=== PATIENT | male | born 1960 | race Caucasian/White ===

== ENCOUNTER 2017-12-31 11:39 | Emergency (ER) | payer OTHER ==
[~2017-12-31 11:39] MED LIST: ADVI200C9 PO; LORT5TAB PO
[2017-12-31 12:05] VITALS: BP 167/88; PULSE 84; RESP 16; TEMP 98.4; O2SAT 96
--- NOTE | 2017-12-31 12:55 | PD ---
HPI Chief Complaint: Diabetic Time Seen by Provider: 12:53 Travel History International Travel<30 days: No Contact w/Intl Traveler<30days: No Traveled to known affect area: No History of Present Illness HPI Patient states that he is on metformin, however he has not been taking as prescribed and has been quite noncompliant. Today he attempted to go to [place] outpatient for his once a year physical, when he was told to come to the ER because his blood sugar was over 500. Patient denies any associated fever, rash , nausea, vomiting, diarrhea, chest pain, headache, back pain, flank pain or abdominal pain. Patient denies any alleviating or aggravating factors presently. And states that he has not been compliant at all with his Metformin. Primary care is [place] No known drug allergy Past medical history significant for diabetes, substance use, sleep apnea, PFSH Past Medical History Blood Disorders: No Cancer: No Cardiovascular Problems: No Endocrine: No Genitourinary: No Immune Disorder: No Musculoskeletal: Yes Neurologic: No Psychiatric: No Reproductive: No Respiratory: Yes Sleep Apnea: Yes Social History Alcohol Use: No Tobacco Use: No Substance Use: Yes Allergies-Medications (Allergen,Severity, Reaction): Coded Allergies: No Known Allergies (Verified Allergy, Mild, 12/31/17) Reported Meds & Prescriptions Reported Meds & Active Scripts Active Reported Metformin (Metformin HCl) 1,000 Mg Tab 1,000 Mg PO DAILY With a meal Review of Systems General / Constitutional: No: Fever Eyes: No: Visual changes HENT: No: Headaches Cardiovascular: No: Chest Pain or Discomfort Respiratory: No: Shortness of Breath Gastrointestinal: No: Abdominal Pain Genitourinary: No: Dysuria Musculoskeletal: No: Pain Skin: No Rash Neurologic: No: Weakness Psychiatric: No: Depression Endocrine: Positive: Polyuria, Polydipsia Hematologic/Lymphatic: No: Easy Bruising Physical Exam Narrative GENERAL: SKIN: Warm and dry. HEAD: Atraumatic. Normocephalic. EYES: Pupils equal and round. No scleral icterus. No injection or drainage. ENT: No nasal bleeding or discharge. Mucous membranes pink and moist. NECK: Trachea midline. No JVD. CARDIOVASCULAR: Regular rate and rhythm. RESPIRATORY: No accessory muscle use. Clear to auscultation. Breath sounds equal bilaterally. GASTROINTESTINAL: Abdomen soft, non-tender, nondistended. Hepatic and splenic margins not palpable. MUSCULOSKELETAL: Extremities without clubbing, cyanosis, or edema. No obvious deformities. NEUROLOGICAL: Awake and alert. No obvious cranial nerve deficits. Motor grossly within normal limits. Five out of 5 muscle strength in the arms and legs. Normal speech. PSYCHIATRIC: Appropriate mood and affect; insight and judgment normal. Data Data Last Documented VS Vital Signs Date Time Temp Pulse Resp B/P (MAP) Pulse Ox O2 Delivery O2 Flow Rate FiO2 12/31/17 13:31 80 16 134/80 (98) 94 Room Air 12/31/17 12:05 98.4 Orders Orders Complete Blood Count With Diff (12/31/17 12:06) Basic Metabolic Panel (Bmp) (12/31/17 12:06) Electrocardiogram (12/31/17 13:03) Ckmb (Isoenzyme) Profile (12/31/17 13:03) Troponin I (12/31/17 13:03) Blood Gas Venous Ph (12/31/17 13:03) Iv Access Insert/Monitor (12/31/17 13:03) Ecg Monitoring (12/31/17 13:03) Oximetry (12/31/17 13:03) Urinalysis - C+S If Indicated (12/31/17 13:03) Chest, Single Ap (12/31/17 13:03) Sodium Chlor 0.9% 1000 Ml Inj (Ns 1000 M (12/31/17 13:04) Sodium Chlor 0.9% 1000 Ml Inj (Ns 1000 M (12/31/17 13:34) Insulin Human Regular Inj (Novolin R Inj (12/31/17 13:15) Insulin Human Regular Inj (Novolin R Inj (12/31/17 13:15) CKMB (12/31/17 13:25) CKMB% (12/31/17 13:25) Blood Glucose (12/31/17 14:45) Labs Laboratory Tests Test 12/31/17 12:20 12/31/17 12:25 12/31/17 13:18 12/31/17 13:25 White Blood Count 6.7 TH/MM3 Red Blood Count 5.05 MIL/MM3 Hemoglobin 14.4 GM/DL Hematocrit 41.7 % Mean Corpuscular Volume 82.6 FL Mean Corpuscular Hemoglobin 28.5 PG Mean Corpuscular Hemoglobin Concent 34.5 % Red Cell Distribution Width 12.9 % Platelet Count 209 TH/MM3 Mean Platelet Volume 8.8 FL Neutrophils (%) (Auto) 61.9 % Lymphocytes (%) (Auto) 26.8 % Monocytes (%) (Auto) 7.0 % Eosinophils (%) (Auto) 3.6 % Basophils (%) (Auto) 0.7 % Neutrophils # (Auto) 4.1 TH/MM3 Lymphocytes # (Auto) 1.8 TH/MM3 Monocytes # (Auto) 0.5 TH/MM3 Eosinophils # (Auto) 0.2 TH/MM3 Basophils # (Auto) 0.0 TH/MM3 CBC Comment DIFF FINAL Differential Comment Blood Urea Nitrogen 14 MG/DL Creatinine 1.04 MG/DL Random Glucose 482 MG/DL Calcium Level 9.4 MG/DL Sodium Level 132 MEQ/L Potassium Level 4.2 MEQ/L Chloride Level 96 MEQ/L Carbon Dioxide Level 25.9 MEQ/L Anion Gap 10 MEQ/L Estimat Glomerular Filtration Rate 74 ML/MIN Venous Blood pH 7.42 Total Creatine Kinase 159 U/L Creatine Kinase MB 3.2 NG/ML Troponin I LESS THAN 0.02 NG/ML MDM Medical Decision Making Medical Screen Exam Complete: Yes Emergency Medical Condition: Yes Medical Record Reviewed: Yes Interpretation(s) EKG shows a normal sinus rhythm, 70 bpm, normal intervals, no evidence of any STEMI pattern. Differential Diagnosis DKA versus hyperglycemia due to noncompliance versus electrolyte imbalance versus pancreatitis versus STEMI Narrative Course High glucose on complete metabolic profile by laboratory 482 reported VBG pH of 7.42 which is normal and does not show any evidence of DKA CBC shows no leukocytosis, no anemia, normal platelet count, no left shift. Patient's electrolytes were all within normal limits with the exception of random glucose of 482 as previously reported First set of cardiac enzymes negative Diagnosis Primary Impression: Hyperglycemia secondary to noncompliance Patient Instructions: Diabetic Hyperglycemia (ED), General Instructions Disposition: 01 DISCHARGE HOME Condition: Stable Harrison Burnett MD Dec 31, 2017 12:55
[2017-12-31] MEDS ORDERED: SODIUM CHLOR 0.9% 1000 ML INJ 1,000 ML IV ONE ×2 (13:04→13:34)
[2017-12-31] MEDS ORDERED: INSULIN HUMAN REGULAR 1,000 UNITS/10 ML VIAL IV PUSH ONE (13:15)
[2017-12-31] MEDS ORDERED: INSULIN HUMAN REGULAR 1,000 UNITS/10 ML VIAL SQ ONE (13:15)
[2017-12-31 13:21] LABS: AUTOMATED NEUTROPHIL # 4.1 TH/MM3 (1.8-7.7); BASOPHIL % 0.7 % (0.0-2.0); EOSINOPHIL # 0.2 TH/MM3 (0-0.4); EOSINOPHIL % 3.6 % (0.0-4.0); HEMATOCRIT 41.7 % (39.0-51.0); HEMOGLOBIN 14.4 GM/DL (13.0-17.0); LYMPH % 26.8 % (9.0-44.0); LYMPHOCYTE # 1.8 TH/MM3 (1.0-4.8); MEAN CELL VOLUME 82.6 FL (80.0-100.0); MEAN CORPUSCULAR HEMOGLOBIN 28.5 PG (27.0-34.0); MEAN CORPUSCULAR HGB CONC 34.5 % (32.0-36.0); MEAN PLATELET VOLUME 8.8 FL (7.0-11.0); MONOCYTE # 0.5 TH/MM3 (0-0.9); NEUT % 61.9 % (16.0-70.0); PLATELET COUNT 209 TH/MM3 (150-450); RED BLOOD COUNT 5.05 MIL/MM3 (4.50-5.90); RED CELL DISTRIBUTION WIDTH 12.9 % (11.6-17.2); WHITE BLOOD COUNT 6.7 TH/MM3 (4.0-11.0)
[2017-12-31 13:31] VITALS: BP 134/80; PULSE 80; RESP 16; O2SAT 94
[2017-12-31] MEDS ORDERED: METF1000 PO (13:31)
[2017-12-31 13:34] LABS: BICARBONATE 25.9 MEQ/L (21.0-32.0); CALCIUM 9.4 MG/DL (8.5-10.1); CREATININE 1.04 MG/DL (0.60-1.30)
--- NOTE | 2017-12-31 14:10 | RADRPT ---
EXAM DATE/TIME: 12/31/2017 13:38 [facility] COMPARISON: No previous studies available for comparison. INDICATIONS : Hyperglycemia. MEDICAL HISTORY : diabetic SURGICAL HISTORY : None. ENCOUNTER: Initial ACUITY: 1 day PAIN SCORE: 0/10 LOCATION: Bilateral chest FINDINGS: Portable AP view of the chest demonstrates a normal-sized cardiac silhouette. No effusion, consolidat ion, or pneumothorax is visualized. The bones and soft tissues demonstrate no acute abnormality. CONCLUSION: No acute cardiopulmonary abnormality is identified. Jayesh Luque MD on December 31, 2017 at 14:07 Board Certified Radiologist. This report was verified electronically.
[2017-12-31 14:13] LABS: TROPONIN I LESS THAN 0.02 NG/ML (0.02-0.05)
[2017-12-31 17:30] LABS: BILIRUBIN, URINE NEG (NEG); BLOOD, URINE NEG (NEG); GLUCOSE,URINE 1000 mg/dL (NEG); KETONE, URINE NEG (NEG); NITRITE,URINE NEG (NEG); URINE COLOR LIGHT-YELLOW (YELLW/STRAW); URINE LEUKOCYTE ESTERASE NEG (NEG)
--- NOTE | 2018-01-01 21:38 | EKG ---
Date Performed: 12/31/2017 Time Performed: 13:40:08 PTAGE: 57 years EKG: Sinus rhythm NORMAL ECG NO PREVIOUS TRACING DOCTOR: Benny Wesley Interpretating Date/Time 01/01/2018 21:36:54
== END 2017-12-31 17:45 | disposition home or self-care (01) ==
LOC: NEPE 11:39
DX: E11.65 Type 2 diabetes mellitus with hyperglycemia (principal); Z91.14 Patient's other noncompliance with medication regimen; G47.30 Sleep apnea, unspecified; Z79.84 Long term (current) use of oral hypoglycemic drugs
CPT/HCPCS: 71045; 80048; 81001; 82550; 82552; 82800; 84484; 85025; 93005; 96361; 96372; 96374; 99285; J1815; J7030